=== PATIENT | female | born 1965 | race Hispanic/Latino ===

== ENCOUNTER 2017-02-06 19:06 | Emergency (ER) | payer SELFPAY ==
[~2017-02-06] VITALS: Ht 152.4 cm; Wt 68.2 kg
[2017-02-06 19:10] VITALS: BP 138/84; PULSE 71; RESP 16; O2SAT 100
--- NOTE | 2017-02-06 19:26 | ED.REPORT ---
HPI-Chest Pain 40 and Over Date of Service Feb 06, 2017 ED Provider: Mac Lambert MD A 51 year old female presents to the ED with intermittent, left-sided chest pain that began 6 months ago. Each episode of chest pain lasts a few seconds at a time. Her chest pain is often associated with SOB, back pain and occasional anxiety. The pain radiates to her neck and her left arm. Patient also reports experiencing dizziness for the past few months, however, the dizziness is not associated with the chest pain. She also noticed right lower extremity swelling that began 4 days ago. The patient has no known cardiac risk factors. Nursing Notes Stated Complaint: CHEST PAIN, DIZZYNESS Chief Complaint: Chest Pain Nursing Notes Reviewed: Yes Allergies: Coded Allergies: latex (Verified Allergy, Intermediate, 04/25/09) naproxen (Verified Allergy, Intermediate, 04/25/09) Scheduled PRN Meclizine (Bonine) 25 Mg Tab.chew 25 MG PO TID PRN PRN For Dizziness General Time Seen by MD: 19:25 Chief Complaint Chest pain Hx Obtained From: Patient Arrived By: Walk-in Sudden in Onset?: No Onset Occurred: More than a week ago... (6 months) Symptom Duration: Since onset Location: : Chest left Quality: Painful Radiation: : Arm left Migration/Movement: Reports: None Severity: Current: Moderate Severity: Maximum: Moderate Associated with: Reports: Dizziness, Shortness of Breath Pertinent Negative: Pt denies other symptoms Recent Healthcare: No recent doctor visit, No recent hospitalization Risk Factors )( CAD Risk Stratification Risk factors reviewed )( TAD Risk Stratification Risk factors reviewed )( PE Risk Stratification Risk factors reviewed Past Medical History Past Medical History None reported. Denies: Congestive heart failure, Coronary artery disease, Diabetes mellitus, Hypertension Past Surgical History None reported. Smoking History Never Smoker Social History Alcohol Use: Denies alcohol use Drug Use: Denies drug use Other Social History: Good social support, Local resident Ambulatory Status Independent Review of Systems Respiratory: Reports: Shortness of breath Cardiovascular: Reports: Chest pain Musculoskeletal: Reports: Back pain, Extremity swelling (RLE swelling), Neck pain Neurologic: Reports: Dizziness Psychiatric: Reports: Anxiety Complete sys rev & neg: except as marked. Physical Exam Initial Vital Signs Vital Signs (First) Date Time Temp Pulse Resp B/P Pulse Ox O2 Delivery O2 Flow Rate FiO2 02/06/17 19:10 36.6 71 16 138/84 100 Room Air Initial VS: Reviewed Head / Eyes: Atraumatic, Normocephalic, PERRL Neck: Supple, Non-tender, Full range of motion Skin: Warm, Dry, No cyanosis Psychiatric: Mood/affect normal, Behavior normal, Normal thought content General/Constitutional: Awake, Alert, No acute distress, Well appearing, Well developed Respiratory / Chest: Atraumatic, Breath sounds NL, Breath sounds = bilat, No respiratory distress, No chest tenderness Cardiovascular: Heart rate NL, Regular rhythm, Heart sounds NL, No murmurs, Peripheral circulation NL, Pulses = bilaterally Abdomen: Atraumatic, Soft, Non-tender Lower Extremity / Pelvis / MS: Atraumatic, Neurologic intact, Vascular intact, No edema Neurologic: Oriented X3, Speech NL, No motor deficits, No sensory deficits, CN II - XII intact Siddhartha hallpike negative Upper Extremity / MS: Atraumatic, Neurologic intact, Vascular intact, No edema Interpretation & Diagnostics Lab Results Interpretation Result Diagram: 02/06/17192902/06/171929 Test 02/06/17 19:30 White Blood Count 10.0th/mm3 (3.8-10.1) Red Blood Count 5.27mil/mm3 (3.90-5.20) Hemoglobin 15.1g/dL (12.0-15.6) Hematocrit 45.4% (35.0-46.0) Mean Corpuscular Volume 86.1fL (81-100) Mean Corpuscular Hemoglobin 28.7pg (27.0-35.0) Mean Corpuscular Hemoglobin Concent 33.3% (32.0-37.0) Red Cell Distribution Width 13.2% (12.3-15.4) Platelet Count 267bil/L (150-400) Neutrophils (%) (Auto) 58.6% (40-74) Lymphocytes (%) (Auto) 32.1% (14-46) Monocytes (%) (Auto) 7.2% (4-12) Eosinophils (%) (Auto) 1.3% (0-5) Basophils (%) (Auto) 0.5% (0-3) D-Dimer 3.02mg/L FEU (<0.50) Sodium Level 140mEq/L (134-144) Potassium Level 4.1mEq/L (3.5-5.2) Chloride Level 102mEq/L (97-108) Carbon Dioxide Level 22mmol/L (18-29) Blood Urea Nitrogen 18mg/dL (6-24) Creatinine 0.60mg/dL (0.57-1.00) Estimat Glomerular Filtration Rate 152mL/min (>59) Glucose Level 102mg/dL (60-99) Calcium Level 9.5mg/dL (8.5-10.1) Magnesium Level 2.5mg/dL (1.6-2.6) Total Bilirubin 0.3mg/dL (0.0-1.2) Aspartate Amino Transf (AST/SGOT) 14U/L (0-50) Alanine Aminotransferase (ALT/SGPT) 20U/L (0-32) Alkaline Phosphatase 74U/L (25-150) Troponin T < 0.010ug/L (0.0-0.011) Pro-B-Type Natriuretic Peptide 36.49pg/mL (0-249) Total Protein 8.2g/dL (6.4-8.4) Albumin 4.8g/dL (3.4-5.0) Hold Aparicio Top Tube Received (Received) ECG Interpretation ECG Interpretation: Sinus Rhythm Rate 71 bpm T wave inversions in V3 AVR No STT changes No prior for comparison Time: 19:21 Interpreted by: ED physician X-Ray Chest Interpretation Chest Xray Interpretation: IMPRESSION: Mildly reduced inspiratory volume, no acute disease, source of chest pain is not seen. Dictated by: Jorge Luis Hernandez M.D. on 02/06/2017 at 20:36 Interpretation / Wet Read by: Interpret - Radiologist CT Chest Interpretation IMPRESSION: No pulmonary embolus seen, source of current dyspnea is not found. Dictated by: Jorge Luis Hernandez M.D. on 02/06/2017 at 21:09 Study type: CT pulm angiogram Interpretation / Wet Read by: Interpret - Radiologist US Focused Lower Ext Venous IMPRESSION: No DVT found. Dictated by: Jorge Luis Hernandez M.D. on 02/06/2017 at 20:55 Exam Interpreted by: Radiologist Re-Eval/Medical Decision Med Decision/Clinical Course 51-year-old female presenting complaining of dizziness and dyspnea times many months. Her vital signs are stable here. Her neurological exam is normal. Her d-dimer was elevated therefore CT and her chest was performed with no evidence of blood clot. Complained of some right lower extremity calf pain for 4 days ultrasound was negative for blood clot. Her EKG was normal. Her troponins were negative. Her Siddhartha-Hallpike was negative however her dizziness improved on Siddhartha-Hallpike. She will follow up with primary doctor. She was given meclizine for possible benign positional vertigo. Her chest pain sounds more like palpitations which lasted several seconds. She may benefit from outpatient Holter monitor. She will follow-up with her primary doctor in 1-2 days. Return precautions given. Time of Eval: 21:18 Patient Status: Condition improved Re-Evaluation/Progress Note: The patient's symptoms have improved upon recheck. She is informed of her results and diagnosis. All questions are addressed. The patient understands and agrees with the intended treatment plan. Counseled Regarding: Diagnosis, Lab results, Need for follow-up, When/why to return to ED Discharge & Departure Primary Impression: Non-cardiac chest pain Additional Impression: Dizziness Disposition: Home Discharge Condition All VS Reviewed: Yes Condition: Improved Patient Instructions: Dizziness (ED), Noncardiac Chest Pain (ED) Additional Instructions: Thank you for trusting us with your care this afternoon. Your emergency department evaluation today including examination, lab work, EKG , ultrasound, Chest CT and chest X-ray are reassuring that there is no dangerous cause for concern at this time. There was no evidence of a blood clot in your leg or in your chest. Please schedule a follow-up appointment with your primary care physician tomorrow for a recheck. Please return to the emergency department for any new or worsening conditions including any high fevers, shaking chills, nausea, vomiting, abdominal pain, chest pain, shortness or breath, numbness/tingling, lightheadedness or weakness. [employer] Yue por confiar en nosotros con abreu atencin esta tarde. La evaluacin de urgencias hoy incluyendo examen, trabajo de laboratorio, EKG, ultrasonido, TC de trax y radiografa de trax son tranquilizador que existe seamus causa peligrosa de preocupacin en abe momento. No haba evidencia de un co gulo de mario en la pierna o en el pecho. Por favor programar seamus alba de seguimiento con abreu mdico de atencin primaria maana para seamus revisin. Por favor devuelva al servicio de urgencias para cualquier nuevas o que empeora las condiciones incluyendo cualquier fiebres altas, temblores escalofros, n useas, vmitos, dolor abdominal, dolor torcico, disnea o respiracin, entumecimiento/hormigueo, mareos o debilidad. Referrals: Radha Gold MD (PCP) Scribe Attestation Portions of this note were transcribed by Lakshmi Nolan. I, Dr. Lambert personally performed the history, physical exam and medical decision-making; I reviewed and confirmed the accuracy of the information in the transcribed note. copies to: Radha Gold MD, Ben M MD Feb 06, 2017 19:25 LAKSHMI NOLAN Feb 06, 2017 19:35
[2017-02-06 19:39] LABS: BASOPHILS % (AUTO) 0.5 % (0-3); EOSINOPHILS % (AUTO) 1.3 % (0-5); MONOCYTES % (AUTO) 7.2 % (4-12); Mean Corpuscular Hemoglobin 28.7 pg (27.0-35.0); Mean Corpuscular Volume 86.1 fL (81-100); NEUTROPHILS % (AUTO) 58.6 % (40-74); Platelet Count 267 bil/L (150-400)
[2017-02-06 20:01] LABS: TROPONIN T < 0.010 ug/L (0.0-0.011)
[2017-02-06 20:12] LABS: Magnesium 2.5 mg/dL (1.6-2.6)
[2017-02-06 20:13] VITALS: BP 136/51; PULSE 74; RESP 17; O2SAT 97
--- NOTE | 2017-02-06 20:38 | DRSVH ---
PROCEDURE: X-RAY CHEST ONE VIEW, PORTABLE ([id number]) INDICATIONS: cp TECHNIQUE: One view of the chest was acquired. COMPARISON: None. FINDINGS: Surgical changes and devices: None. Lungs and pleura: No pleural effusions or pneumothorax. Lungs are clear. Mediastinum: Mediastinal contours appear normal. Heart size is normal. Bones and chest wall: No suspicious bony lesions. Overlying soft tissues appear unremarkable. IMPRESSION: Mildly reduced inspiratory volume, no acute disease, source of chest pain is not seen. Dictated by: Jorge Luis Hernandez M.D. on 02/06/2017 at 20:36 Approved by: Jorge Luis Hernandez M.D. on 02/06/2017 at 20:36
--- NOTE | 2017-02-06 20:57 | DRSVH ---
PROCEDURE: US VEINOUS LEG DUPLEX UNILATERAL, RIGHT INDICATIONS: RLE swelling r/o DVT TECHNIQUE: Real-time imaging, as well as color and pulse Doppler interrogation, were performed of the lower extr emity deep veins from the inguinal ligament to the popliteal fossa. COMPARISON: None. FINDINGS: The deep veins are normally compressible, and free of intraluminal thrombus. Color and pu lse Doppler demonstrate normal phasic intraluminal flow. There is normal augmentation response to di stal compression maneuver. IMPRESSION: No DVT found. Dictated by: Jorge Luis Hernandez M.D. on 02/06/2017 at 20:55 Approved by: Jorge Luis Hernandez M.D. on 02/06/2017 at 20:56
--- NOTE | 2017-02-06 21:12 | DRSVH ---
PROCEDURE: CT ANGIO CHEST PULMONARY EMBOLISM ([id number]) INDICATIONS: dyspnea ddimer 3 TECHNIQUE: After the administration of intravenous contrast, 2 mm thick sections acquired from the pulmonary api tonya to the posterior costophrenic angles. 3-dimensional maximum intensity projection (MIP) coronal a nd sagittal reformats were then acquired through the thorax. For radiation dose reduction, the follo wing was used: automated exposure control, adjustment of mA and/or kV according to patient size. COMPARISON: [facility], CT, CHEST ANGIO-PE, 03/22/2008, 21:51. FINDINGS: Image quality: Excellent. Pulmonary arteries: Pulmonary arteries are normal in size, and demonstrate no intraluminal filling d efects to suggest central pulmonary embolism. Lungs and pleura: Lungs are clear. No pleural effusions or pneumothorax. Central and peripheral ai rways are patent. Mediastinum: Heart size is normal, without pericardial effusion. No mediastinal or hilar adenopathy . Thoracic aorta is normal in caliber and enhancement. Esophagus is normal in caliber, without hiat al hernia. Bones and chest wall: No suspicious bony lesions. Ribs and thoracic spine appear intact throughout. Thyroid gland is appears normal where well visualized. No axillary or supraclavicular adenopathy. Abdomen: Visualized upper abdominal solid organs appear normal in the early arterial phase of enhanc ement. IMPRESSION: No pulmonary embolus seen, source of current dyspnea is not found. Dictated by: Jorge Luis Hernandez M.D. on 02/06/2017 at 21:09 Approved by: Jorge Luis Hernandez M.D. on 02/06/2017 at 21:11
[2017-02-06] MEDS ORDERED: MECL-114 PO (21:44)
[2017-02-06 21:54] VITALS: BP 119/63; PULSE 63; RESP 16; O2SAT 98
== END 2017-02-06 21:56 | disposition home or self-care (01) ==
LOC: SED 19:06
DX: R07.89 Other chest pain (principal); R42 Dizziness and giddiness; R06.02 Shortness of breath; M54.9 Dorsalgia, unspecified; Z91.040 Latex allergy status; Z88.8 Allergy status to other drugs, medicaments and biological substances
CPT/HCPCS: 36415; 71010; 71275; 80053; 83735; 83880; 84484; 85025; 85378; 93005; 93971; 99285; Q9967